=== PATIENT | female | born 1955 | race African-American/Black ===

== ENCOUNTER 2022-07-18 18:15 | Inpatient (IN) | payer MEDICARE, OTHER ==
[~2022-07-18] VITALS: Ht 160 cm; Wt 93.6 kg
[2022-07-18] MEDS ORDERED: LIDOCAINE HCL 2% JELLY 5 ML TUBE TOP ONE (19:15)
[2022-07-18] MEDS ORDERED: LIDOCAINE JELLY 2% 10ML URO-JET TOP ONE (19:30)
[2022-07-18 20:10] LABS: BASOPHILS # (AUTO) 0.1 (0.0-0.1); BASOPHILS % 0.8 % (0.0-1.0); EOSINOPHILS % 0.5 % (0.0-6.0); HEMATOCRIT 28.7 % (34.2-44.1); HEMOGLOBIN 8.9 g/dL (12.0-16.0); LYMPHOCYTES # (AUTO) 1.7 (1.0-3.2); LYMPHOCYTES % 19.4 % (18.0-39.1); MEAN CORPUSCULAR VOLUME 80.6 fL (81-99); MONOCYTES # (AUTO) 0.9 (0.2-0.8); MONOCYTES % 10.9 % (4.4-11.3); NEUTROPHILS # (AUTO) 5.3 (2.1-6.9); NEUTROPHILS % 61.6 % (38.7-80.0); PLATELET COUNT 244 x10e3/uL (140-360); RED BLOOD COUNT 3.56 x10e6/uL (3.6-5.1); RED CELL DISTRIBUTION WIDTH 20.7 % (11.7-14.4)
[2022-07-18 20:19] LABS: INR 1.31; PARTIAL THROMBOPLASTIN TIME 28.8 seconds (23.8-35.5); PROTHROMBIN TIME 16.5 seconds (11.9-14.5)
[2022-07-18 20:29] LABS: ALBUMIN 2.8 g/dL (3.5-5.0); ALBUMIN/GLOBULIN RATIO 0.9 (0.8-2.0); ANION GAP 18.6 mmol/L (8-16); CALCIUM 9.1 mg/dL (8.4-10.2); CREATININE, SERUM 1.55 mg/dL (0.57-1.11); POTASSIUM 3.6 mmol/L (3.5-5.1)
[2022-07-18] MEDS ORDERED: ACETAMINOPHEN 325 MG TAB PO ONE (20:30)
[2022-07-18 20:36] LABS: CREATINE KINASE MB 0.6 ng/mL (0-5.0)
[2022-07-18 20:37] LABS: CLARITY,URINE SL CLOUDY (CLEAR); COLOR,URINE YELLOW (YELLOW); KETONES,URINE NEGATIVE (NEGATIVE); LEUKOCYTE ESTERASE ,URINE MODERATE (NEGATIVE); NITRITE,URINE NEGATIVE (NEGATIVE); PROTEIN,URINE DIPSTICK 1+ (NEGATIVE); URINE UROBILINOGEN 0.2 mg/dL (0.2 - 1)
[2022-07-18 20:48] LABS: BACTERIA,URINE MODERATE /HPF; EPITHELIAL CELLS,URINE MANY /LPF
[2022-07-18 21:04] LABS: HYPOCHROMASIA SLIGHT; LYMPHOCYTES % (MANUAL) 19 % (19-48); MICROCYTOSIS SLIGHT; MONOCYTES % (MANUAL) 13 % (3.4-9.0); NEUTROPHILS % (MANUAL) 68 % (40-74); NUCLEATED RED BLOOD CELLS 1; PLATELET ESTIMATE ADEQUATE; PLATELET MORPHOLOGY COMMENT NORMAL; RBC MORPHOLOGY COMMENT ABNORMAL
[2022-07-18] MEDS: FUROSEMIDE INJ 10 MG/ML 4 ML VIAL IV SCH (21:45)
[2022-07-18] MEDS ORDERED: ONDANSETRON HCL INJ 2MG/ML 2ML 2 MG/ML VIAL IV PRN (21:45)
[2022-07-18] MEDS ORDERED: SODIUM CHLORIDE FLUSH 10 ML SYR INJ PRN (21:45)
[2022-07-19] MEDS ORDERED: TEMAZEPAM 7.5 MG CAP PO PRN (00:30)
[2022-07-19] MEDS ORDERED: POLYETHYLENE GLYCOL 3350 17 GM PACK PO PRN (00:30)
[2022-07-19 02:27] VITALS: BP 140/92
[2022-07-19 06:52] LABS: BASOPHILS # (AUTO) 0.1 (0.0-0.1); EOSINOPHILS # (AUTO) 0.1 (0.0-0.4); EOSINOPHILS % 1.8 % (0.0-6.0); HEMATOCRIT 27.2 % (34.2-44.1); HEMOGLOBIN 8.9 g/dL (12.0-16.0); LYMPHOCYTES # (AUTO) 1.8 (1.0-3.2); MEAN CORPUSCULAR HEMOGLOBIN 27.3 pg (28-32); MEAN CORPUSCULAR HGB CONC 32.7 g/dL (31-35); MEAN CORPUSCULAR VOLUME 83.4 fL (81-99); MONOCYTES % 12.6 % (4.4-11.3); NEUTROPHILS # (AUTO) 4.3 (2.1-6.9); NEUTROPHILS % 54.2 % (38.7-80.0); PLATELET COUNT 248 x10e3/uL (140-360); RED BLOOD COUNT 3.26 x10e6/uL (3.6-5.1); RED CELL DISTRIBUTION WIDTH 22.2 % (11.7-14.4)
[2022-07-19 07:11] LABS: ANION GAP 18.5 mmol/L (8-16); CALCIUM 9.2 mg/dL (8.4-10.2); CREATININE, SERUM 1.57 mg/dL (0.57-1.11); POTASSIUM 3.5 mmol/L (3.5-5.1)
[2022-07-19] MEDS ORDERED: FAMOTIDINE 20 MG TAB PO SCH (07:30)
[2022-07-19 07:31] LABS: CHOL/HDL RATIO 3.1 (3.0-3.6); MAGNESIUM 1.3 MG/DL (1.3-2.1); PHOSPHORUS 3.5 MG/DL (2.3-4.7)
[2022-07-19 07:43] LABS: THYROID STIMULATING HORMONE 2.711 uIU/mL (0.350-4.940)
[2022-07-19] MEDS: METOPROLOL SUCCINATE 25 MG TAB XL PO SCH (09:46)
[2022-07-19] MEDS: SPIRONOLACTONE 25 MG TAB PO SCH (09:47)
[2022-07-19] MEDS: FUROSEMIDE INJ 10 MG/ML 4 ML VIAL IV SCH ×2 (09:47→21:00)
[2022-07-19] MEDS: DOCUSATE SODIUM 100 MG CAP PO SCH ×2 (09:47→16:20)
[2022-07-19 10:03] VITALS: BP 151/86
[2022-07-19] MEDS ORDERED: FLOVENT DISKUS50 MCG IH (10:29)
[2022-07-19] MEDS ORDERED: FUROSEMIDE40 MG PO (10:33)
[2022-07-19] MEDS ORDERED: ATORVASTATIN CA20 MG PO (10:33)
[2022-07-19] MEDS ORDERED: LORATADINE10 MG PO (10:33)
[2022-07-19] MEDS ORDERED: METOPROLOL SUCC50 MG PO (10:33)
[2022-07-19 10:46] VITALS: BP 151/86
[2022-07-19 12:14] VITALS: BP 151/86
[2022-07-19] MEDS ORDERED: SODIUM CHLORIDE 0.9% 250ML 250 ML ONE (16:08)
[2022-07-19] MEDS: METHYLPREDNISOLONE SOD SUCC 125 MG/2ML VIAL IV SCH (16:20)
[2022-07-19] MEDS: Doxycycline IV 100 MG in SODIUM CHLORIDE 0.9% 100 ML IV SCH (16:20)
[2022-07-19 16:57] VITALS: BP 101/71
[2022-07-19] MEDS: LEVALBUTEROL HCL SOLN NEBU 1.25 MG/3 ML NEB INH SCH (19:35)
[2022-07-19] MEDS: IPRATROPIUM BROMIDE 0.02% 2.5 ML NEB NEB SCH (19:35)
[2022-07-19 20:00] VITALS: BP 150/98
[2022-07-19] MEDS: ATORVASTATIN 40 MG TAB PO SCH (21:36)
[2022-07-19] MEDS: TEMAZEPAM 15 MG CAP PO PRN (21:36)
[2022-07-20] MEDS: IPRATROPIUM BROMIDE 0.02% 2.5 ML NEB NEB SCH ×4 (00:25→19:30)
[2022-07-20] MEDS: LEVALBUTEROL HCL SOLN NEBU 1.25 MG/3 ML NEB INH SCH ×4 (00:25→19:30)
[2022-07-20] MEDS: Doxycycline IV 100 MG in SODIUM CHLORIDE 0.9% 100 ML IV SCH ×2 (04:43→15:24)
[2022-07-20] MEDS: METHYLPREDNISOLONE SOD SUCC 125 MG/2ML VIAL IV SCH (04:44)
[2022-07-20] MEDS: FUROSEMIDE INJ 10 MG/ML 4 ML VIAL IV SCH ×3 (05:46→16:47)
[2022-07-20 06:59] LABS: BASOPHILS % 0.4 % (0.0-1.0); HEMATOCRIT 29.1 % (34.2-44.1); HEMOGLOBIN 9.4 g/dL (12.0-16.0); LYMPHOCYTES # (AUTO) 0.9 (1.0-3.2); LYMPHOCYTES % 12.4 % (18.0-39.1); MEAN CORPUSCULAR HEMOGLOBIN 25.4 pg (28-32); MEAN CORPUSCULAR HGB CONC 32.3 g/dL (31-35); MEAN CORPUSCULAR VOLUME 78.6 fL (81-99); MONOCYTES # (AUTO) 0.2 (0.2-0.8); NEUTROPHILS # (AUTO) 5.8 (2.1-6.9); NEUTROPHILS % 77.3 % (38.7-80.0); PLATELET COUNT 338 x10e3/uL (140-360); RED CELL DISTRIBUTION WIDTH 20.1 % (11.7-14.4)
[2022-07-20 07:19] LABS: ALBUMIN 2.7 g/dL (3.5-5.0); ALBUMIN/GLOBULIN RATIO 0.9 (0.8-2.0); ANION GAP 16.8 mmol/L (8-16); CALCIUM 9.2 mg/dL (8.4-10.2); CREATININE, SERUM 1.57 mg/dL (0.57-1.11); POTASSIUM 3.8 mmol/L (3.5-5.1)
[2022-07-20] MEDS: FAMOTIDINE 20 MG TAB PO SCH (08:34)
[2022-07-20] MEDS: SPIRONOLACTONE 25 MG TAB PO SCH (08:34)
[2022-07-20] MEDS: DOCUSATE SODIUM 100 MG CAP PO SCH ×2 (08:34→16:44)
[2022-07-20] MEDS: METOPROLOL SUCCINATE 25 MG TAB XL PO SCH (08:36)
[2022-07-20 08:41] VITALS: BP 158/95
[2022-07-20 08:49] VITALS: BP 158/95
[2022-07-20] MEDS ORDERED: METOPROLOL SUCCINATE 25 MG TAB XL PO SCH (09:00)
[2022-07-20 10:32] LABS: CREATININE,URINE RANDOM 17.33 mg/dL (47-110)
[2022-07-20 10:40] LABS: TOTAL PROTEIN, URINE < 6.8 mg/dL (1-14)
[2022-07-20 12:06] VITALS: BP 139/98
[2022-07-20] MEDS: METHYLPREDNISOLONE SOD SUCC 40 MG/ML VIAL 1ML IV SCH ×2 (13:04→21:30)
[2022-07-20] MEDS ORDERED: ONDANSETRON HCL 4 MG ORAL DISINTEGRATING TAB PO PRN (13:45)
[2022-07-20 16:01] VITALS: BP 129/93
[2022-07-20] MEDS ORDERED: BUDESONIDE 0.25 MG/2 ML NEB NEB SCH ×2 (19:00→21:30)
[2022-07-20 20:00] VITALS: BP 141/91
[2022-07-20] MEDS: HEPARIN SOD (PORCINE) 5,000 UNIT/ML VIAL SC SCH (21:35)
[2022-07-20] MEDS: ATORVASTATIN 40 MG TAB PO SCH (21:36)
[2022-07-21] VITALS (7 sets, daily range): BP systolic 131–158; BP diastolic 84–117
[2022-07-21] MEDS: LEVALBUTEROL HCL SOLN NEBU 1.25 MG/3 ML NEB INH SCH ×4 (01:00→19:05)
[2022-07-21] MEDS: IPRATROPIUM BROMIDE 0.02% 2.5 ML NEB NEB SCH ×4 (01:00→19:05)
[2022-07-21] MEDS: BUDESONIDE 0.25 MG/2 ML NEB INH SCH ×3 (01:00→19:05)
[2022-07-21] MEDS: METHYLPREDNISOLONE SOD SUCC 40 MG/ML VIAL 1ML IV SCH ×3 (05:03→22:46)
[2022-07-21] MEDS: Doxycycline IV 100 MG in SODIUM CHLORIDE 0.9% 100 ML IV SCH ×2 (05:04→14:42)
[2022-07-21] MEDS: FUROSEMIDE INJ 10 MG/ML 4 ML VIAL IV SCH ×3 (05:10→17:00)
[2022-07-21 06:13] LABS: ALBUMIN 2.7 g/dL (3.5-5.0); ANION GAP 17.5 mmol/L (8-16); CALCIUM 9.1 mg/dL (8.4-10.2); CREATININE, SERUM 1.82 mg/dL (0.57-1.11); POTASSIUM 3.5 mmol/L (3.5-5.1)
[2022-07-21] MEDS: SPIRONOLACTONE 25 MG TAB PO SCH (09:15)
[2022-07-21] MEDS: FAMOTIDINE 20 MG TAB PO SCH (09:15)
[2022-07-21] MEDS: DOCUSATE SODIUM 100 MG CAP PO SCH ×2 (09:15→17:00)
[2022-07-21] MEDS: METOPROLOL SUCCINATE 25 MG TAB XL PO SCH (09:16)
[2022-07-21] MEDS: HEPARIN SOD (PORCINE) 5,000 UNIT/ML VIAL SC SCH ×2 (09:19→22:55)
[2022-07-21] MEDS: TEMAZEPAM 15 MG CAP PO PRN (22:45)
[2022-07-21] MEDS: ATORVASTATIN 40 MG TAB PO SCH (22:46)
[2022-07-21] MEDS: METOPROLOL TARTRATE INJ 1 MG/ML VIAL IV PRN (22:47)
[2022-07-22] VITALS (12 sets, daily range): BP systolic 116–168; BP diastolic 84–113
[2022-07-22] MEDS: IPRATROPIUM BROMIDE 0.02% 2.5 ML NEB NEB SCH ×4 (00:40→19:55)
[2022-07-22] MEDS: LEVALBUTEROL HCL SOLN NEBU 1.25 MG/3 ML NEB INH SCH ×4 (00:40→19:55)
[2022-07-22] MEDS: Doxycycline IV 100 MG in SODIUM CHLORIDE 0.9% 100 ML IV SCH ×2 (03:38→14:25)
[2022-07-22] MEDS: METHYLPREDNISOLONE SOD SUCC 40 MG/ML VIAL 1ML IV SCH ×3 (07:05→21:03)
[2022-07-22] MEDS: FUROSEMIDE INJ 10 MG/ML 4 ML VIAL IV SCH ×2 (07:06→16:48)
[2022-07-22] MEDS: BUDESONIDE 0.25 MG/2 ML NEB INH SCH ×2 (07:24→19:00)
[2022-07-22 07:51] LABS: ANION GAP 17.4 mmol/L (8-16); CREATININE, SERUM 1.95 mg/dL (0.57-1.11); POTASSIUM 3.4 mmol/L (3.5-5.1)
[2022-07-22] MEDS: SPIRONOLACTONE 25 MG TAB PO SCH (09:26)
[2022-07-22] MEDS: DOCUSATE SODIUM 100 MG CAP PO SCH ×2 (09:26→16:48)
[2022-07-22] MEDS: METOPROLOL SUCCINATE 25 MG TAB XL PO SCH (09:26)
[2022-07-22] MEDS: FAMOTIDINE 20 MG TAB PO SCH (09:26)
[2022-07-22] MEDS: HEPARIN SOD (PORCINE) 5,000 UNIT/ML VIAL SC SCH ×2 (09:32→21:02)
[2022-07-22] MEDS: ATORVASTATIN 40 MG TAB PO SCH (21:03)
[2022-07-23] VITALS (8 sets, daily range): BP systolic 134–176; BP diastolic 87–124
[2022-07-23] MEDS: IPRATROPIUM BROMIDE 0.02% 2.5 ML NEB NEB SCH ×4 (01:45→18:55)
[2022-07-23] MEDS: LEVALBUTEROL HCL SOLN NEBU 1.25 MG/3 ML NEB INH SCH ×4 (01:45→18:55)
[2022-07-23] MEDS: Doxycycline IV 100 MG in SODIUM CHLORIDE 0.9% 100 ML IV SCH ×2 (02:52→16:00)
[2022-07-23 05:24] LABS: BASOPHILS # (AUTO) 0.1 (0.0-0.1); BASOPHILS % 0.3 % (0.0-1.0); EOSINOPHILS # (AUTO) 0.1 (0.0-0.4); EOSINOPHILS % 0.7 % (0.0-6.0); HEMATOCRIT 27.9 % (34.2-44.1); HEMOGLOBIN 8.8 g/dL (12.0-16.0); LYMPHOCYTES # (AUTO) 0.4 (1.0-3.2); LYMPHOCYTES % 2.9 % (18.0-39.1); MEAN CORPUSCULAR HEMOGLOBIN 25.3 pg (28-32); MEAN CORPUSCULAR HGB CONC 31.5 g/dL (31-35); MEAN CORPUSCULAR VOLUME 80.2 fL (81-99); MONOCYTES # (AUTO) 0.7 (0.2-0.8); MONOCYTES % 4.3 % (4.4-11.3); NEUTROPHILS # (AUTO) 11.7 (2.1-6.9); NEUTROPHILS % 78.1 % (38.7-80.0); PLATELET COUNT 299 x10e3/uL (140-360); RED BLOOD COUNT 3.48 x10e6/uL (3.6-5.1); RED CELL DISTRIBUTION WIDTH 20.3 % (11.7-14.4)
[2022-07-23 05:46] LABS: ANION GAP 17.2 mmol/L (8-16); CALCIUM 9.2 mg/dL (8.4-10.2); CREATININE, SERUM 1.95 mg/dL (0.57-1.11); MAGNESIUM 1.3 MG/DL (1.3-2.1); POTASSIUM 3.2 mmol/L (3.5-5.1)
[2022-07-23] MEDS: METHYLPREDNISOLONE SOD SUCC 40 MG/ML VIAL 1ML IV SCH (06:15)
[2022-07-23] MEDS: BUDESONIDE 0.25 MG/2 ML NEB INH SCH ×2 (06:45→19:00)
[2022-07-23 08:06] LABS: LYMPHOCYTES % (MANUAL) 4 % (19-48); MONOCYTES % (MANUAL) 6 % (3.4-9.0); NEUTROPHILS % (MANUAL) 90 % (40-74); PLATELET ESTIMATE ADEQUATE; PLATELET MORPHOLOGY COMMENT NORMAL; RBC MORPHOLOGY COMMENT NORMAL
[2022-07-23] MEDS ORDERED: FUROSEMIDE 40 MG TAB PO SCH (09:00)
[2022-07-23] MEDS: FAMOTIDINE 20 MG TAB PO SCH (09:51)
[2022-07-23] MEDS: SPIRONOLACTONE 25 MG TAB PO SCH (09:51)
[2022-07-23] MEDS: DOCUSATE SODIUM 100 MG CAP PO SCH ×2 (09:51→16:41)
[2022-07-23] MEDS: METOPROLOL SUCCINATE 50 MG TAB XL PO SCH (09:52)
[2022-07-23] MEDS: HEPARIN SOD (PORCINE) 5,000 UNIT/ML VIAL SC SCH ×2 (09:54→21:34)
[2022-07-23] MEDS ORDERED: HYDRALAZINE HCL 25 MG TAB PO SCH (12:00)
[2022-07-23] MEDS: POTASSIUM CHLORIDE 20MEQ/100ML 100 ML IV SCH ×2 (12:14→13:00)
[2022-07-23] MEDS ORDERED: SODIUM CHLORIDE 0.9% 500ML 500 ML ONE (12:26)
[2022-07-23] MEDS: ACETAMINOPHEN 325 MG TAB PO PRN (16:41)
[2022-07-23] MEDS: METOPROLOL TARTRATE INJ 1 MG/ML VIAL IV PRN (16:44)
[2022-07-23] MEDS ORDERED: BUMETANIDE 1 MG TAB PO SCH ×2 (17:00)
[2022-07-23] MEDS ORDERED: METHYLPREDNISOLONE SOD SUCC 40 MG/ML VIAL 1ML IV SCH (17:00)
[2022-07-23] MEDS ORDERED: POTASSIUM CHLORIDE 20MEQ/100ML 100 ML IV ONE (17:00)
[2022-07-23] MEDS: HYDRALAZINE HCL 25 MG TAB PO SCH ×2 (18:21→21:00)
[2022-07-23] MEDS: ATORVASTATIN 40 MG TAB PO SCH (21:29)
[2022-07-24] VITALS (8 sets, daily range): BP systolic 136–154; BP diastolic 83–102
[2022-07-24] MEDS: IPRATROPIUM BROMIDE 0.02% 2.5 ML NEB NEB SCH ×4 (01:05→19:30)
[2022-07-24] MEDS: LEVALBUTEROL HCL SOLN NEBU 1.25 MG/3 ML NEB INH SCH ×4 (01:05→19:30)
[2022-07-24] MEDS: Doxycycline IV 100 MG in SODIUM CHLORIDE 0.9% 100 ML IV SCH ×2 (03:27→15:03)
[2022-07-24] MEDS: HYDRALAZINE HCL 25 MG TAB PO SCH ×3 (05:24→21:58)
[2022-07-24] MEDS ORDERED: BUDESONIDE 0.5MG/2 ML NEB ONE (06:49)
[2022-07-24] MEDS: BUDESONIDE 0.25 MG/2 ML NEB INH SCH ×2 (07:00→19:45)
[2022-07-24] MEDS ORDERED: FUROSEMIDE 40 MG TAB PO SCH (09:00)
[2022-07-24] MEDS: METHYLPREDNISOLONE SOD SUCC 40 MG/ML VIAL 1ML IV SCH (09:20)
[2022-07-24] MEDS: FAMOTIDINE 20 MG TAB PO SCH (09:20)
[2022-07-24] MEDS: METOPROLOL SUCCINATE 50 MG TAB XL PO SCH (09:20)
[2022-07-24] MEDS: DOCUSATE SODIUM 100 MG CAP PO SCH ×2 (09:20→16:09)
[2022-07-24] MEDS: HEPARIN SOD (PORCINE) 5,000 UNIT/ML VIAL SC SCH ×2 (09:34→22:02)
[2022-07-24] MEDS ORDERED: BUMETANIDE INJ 0.25MG/ML 4ML VIAL IV STA (10:31)
[2022-07-24 10:32] LABS: ANION GAP 21.6 mmol/L (8-16); CALCIUM 9.8 mg/dL (8.4-10.2); CREATININE, SERUM 2.07 mg/dL (0.57-1.11); MAGNESIUM 1.3 MG/DL (1.3-2.1); PHOSPHORUS 3.3 MG/DL (2.3-4.7); POTASSIUM 4.6 mmol/L (3.5-5.1)
[2022-07-24 10:51] LABS: HEMATOCRIT 30.9 % (34.2-44.1); MEAN CORPUSCULAR HEMOGLOBIN 26.7 pg (28-32); MEAN CORPUSCULAR HGB CONC 32.4 g/dL (31-35); MEAN CORPUSCULAR VOLUME 82.4 fL (81-99); PLATELET COUNT 332 x10e3/uL (140-360); RED BLOOD COUNT 3.75 x10e6/uL (3.6-5.1); RED CELL DISTRIBUTION WIDTH 21.3 % (11.7-14.4)
[2022-07-24] MEDS ORDERED: Vancomycin IV 1 GM in SODIUM CHLORIDE 0.9% 250ML 250 ML IV ONE (11:00)
[2022-07-24] MEDS: BUMETANIDE INJ 0.25MG/ML 4ML VIAL IV SCH ×2 (15:44→21:58)
[2022-07-24] MEDS: ATORVASTATIN 40 MG TAB PO SCH (21:57)
[2022-07-25] VITALS (9 sets, daily range): BP systolic 114–168; BP diastolic 68–100
[2022-07-25] MEDS: LEVALBUTEROL HCL SOLN NEBU 1.25 MG/3 ML NEB INH SCH ×4 (00:20→19:50)
[2022-07-25] MEDS: IPRATROPIUM BROMIDE 0.02% 2.5 ML NEB NEB SCH ×4 (00:20→19:50)
[2022-07-25] MEDS: Doxycycline IV 100 MG in SODIUM CHLORIDE 0.9% 100 ML IV SCH ×2 (02:49→14:17)
[2022-07-25] MEDS: BUMETANIDE INJ 0.25MG/ML 4ML VIAL IV SCH (05:56)
[2022-07-25] MEDS: HYDRALAZINE HCL 25 MG TAB PO SCH ×3 (05:56→22:13)
[2022-07-25] MEDS: BUDESONIDE 0.25 MG/2 ML NEB INH SCH ×2 (06:00→19:50)
[2022-07-25 06:30] LABS: BASOPHILS % 0.3 % (0.0-1.0); EOSINOPHILS # (AUTO) 0.3 (0.0-0.4); EOSINOPHILS % 2.2 % (0.0-6.0); HEMATOCRIT 31.7 % (34.2-44.1); LYMPHOCYTES # (AUTO) 0.7 (1.0-3.2); LYMPHOCYTES % 4.9 % (18.0-39.1); MEAN CORPUSCULAR HEMOGLOBIN 24.8 pg (28-32); MEAN CORPUSCULAR HGB CONC 31.5 g/dL (31-35); MEAN CORPUSCULAR VOLUME 78.7 fL (81-99); MONOCYTES # (AUTO) 0.6 (0.2-0.8); MONOCYTES % 4.6 % (4.4-11.3); NEUTROPHILS # (AUTO) 10.5 (2.1-6.9); NEUTROPHILS % 78.8 % (38.7-80.0); PLATELET COUNT 307 x10e3/uL (140-360); RED BLOOD COUNT 4.03 x10e6/uL (3.6-5.1); RED CELL DISTRIBUTION WIDTH 20.1 % (11.7-14.4)
[2022-07-25 07:13] LABS: ALBUMIN 2.8 g/dL (3.5-5.0); ALBUMIN/GLOBULIN RATIO 0.7 (0.8-2.0); ANION GAP 21.7 mmol/L (8-16); CALCIUM 9.9 mg/dL (8.4-10.2); CREATININE, SERUM 2.35 mg/dL (0.57-1.11); POTASSIUM 4.7 mmol/L (3.5-5.1)
[2022-07-25] MEDS: FAMOTIDINE 20 MG TAB PO SCH (07:30)
[2022-07-25] MEDS: DOCUSATE SODIUM 100 MG CAP PO SCH ×2 (09:00→17:08)
[2022-07-25] MEDS: HEPARIN SOD (PORCINE) 5,000 UNIT/ML VIAL SC SCH ×2 (09:00→22:21)
[2022-07-25] MEDS: METOPROLOL SUCCINATE 50 MG TAB XL PO SCH (09:43)
[2022-07-25] MEDS ORDERED: BUMETANIDE 1 MG TAB PO STA (12:33)
[2022-07-25] MEDS ORDERED: BUMETANIDE INJ 0.25MG/ML 4ML VIAL IV STA (12:46)
[2022-07-25] MEDS: BUMETANIDE 10 MG in SODIUM CHLORIDE 0.9% 60 ML IV SCH ×2 (13:08→22:23)
[2022-07-25] MEDS: METOLAZONE 5 MG TAB PO SCH (13:11)
[2022-07-25] MEDS: ACETAMINOPHEN 325 MG TAB PO PRN (16:49)
[2022-07-25 17:29] LABS: CREATININE,URINE RANDOM 14.14 mg/dL (47-110); TOTAL PROTEIN, URINE 10.9 mg/dL (1-14)
[2022-07-25] MEDS: ATORVASTATIN 40 MG TAB PO SCH (22:13)
[2022-07-26] VITALS (8 sets, daily range): BP systolic 119–141; BP diastolic 75–89
[2022-07-26] MEDS: IPRATROPIUM BROMIDE 0.02% 2.5 ML NEB NEB SCH ×4 (01:40→19:45)
[2022-07-26] MEDS: LEVALBUTEROL HCL SOLN NEBU 1.25 MG/3 ML NEB INH SCH ×3 (01:40→19:45)
[2022-07-26] MEDS: Doxycycline IV 100 MG in SODIUM CHLORIDE 0.9% 100 ML IV SCH ×2 (03:50→15:33)
[2022-07-26] MEDS: HYDRALAZINE HCL 25 MG TAB PO SCH ×3 (06:14→21:30)
[2022-07-26] MEDS: BUDESONIDE 0.25 MG/2 ML NEB INH SCH ×2 (07:19→19:45)
[2022-07-26 08:03] LABS: ALBUMIN 2.8 g/dL (3.5-5.0); ALBUMIN/GLOBULIN RATIO 0.8 (0.8-2.0); ANION GAP 21.2 mmol/L (8-16); CALCIUM 10.1 mg/dL (8.4-10.2); CREATININE, SERUM 2.37 mg/dL (0.57-1.11); POTASSIUM 3.2 mmol/L (3.5-5.1)
[2022-07-26] MEDS: DOCUSATE SODIUM 100 MG CAP PO SCH ×2 (09:19→16:43)
[2022-07-26] MEDS: METHYLPREDNISOLONE SOD SUCC 40 MG/ML VIAL 1ML IV SCH (09:19)
[2022-07-26] MEDS: BUMETANIDE 10 MG in SODIUM CHLORIDE 0.9% 60 ML IV SCH ×2 (09:19→19:00)
[2022-07-26] MEDS: FAMOTIDINE 20 MG TAB PO SCH (09:20)
[2022-07-26] MEDS: METOLAZONE 5 MG TAB PO SCH (09:20)
[2022-07-26] MEDS: METOPROLOL SUCCINATE 50 MG TAB XL PO SCH (09:20)
[2022-07-26] MEDS: HEPARIN SOD (PORCINE) 5,000 UNIT/ML VIAL SC SCH ×2 (11:32→21:32)
[2022-07-26] MEDS ORDERED: SODIUM CHLORIDE 0.9% 250ML 250 ML ONE ×2 (12:10→18:49)
[2022-07-26] MEDS ORDERED: POTASSIUM CHLORIDE 20MEQ/100ML 200 ML IV ONE (12:30)
[2022-07-26] MEDS: POTASSIUM CHLORIDE 20MEQ/100ML 100 ML IV SCH ×2 (13:41→16:28)
[2022-07-26] MEDS: ATORVASTATIN 40 MG TAB PO SCH (21:30)
[2022-07-27] VITALS (7 sets, daily range): BP systolic 103–123; BP diastolic 66–90
[2022-07-27] MEDS: LEVALBUTEROL HCL SOLN NEBU 1.25 MG/3 ML NEB INH SCH ×4 (02:05→19:25)
[2022-07-27] MEDS: IPRATROPIUM BROMIDE 0.02% 2.5 ML NEB NEB SCH ×4 (02:05→19:25)
[2022-07-27] MEDS: Doxycycline IV 100 MG in SODIUM CHLORIDE 0.9% 100 ML IV SCH ×2 (02:29→17:48)
[2022-07-27] MEDS: BUMETANIDE 10 MG in SODIUM CHLORIDE 0.9% 60 ML IV SCH ×3 (04:32→21:12)
[2022-07-27] MEDS: HYDRALAZINE HCL 25 MG TAB PO SCH ×3 (06:02→21:08)
[2022-07-27] MEDS: BUDESONIDE 0.25 MG/2 ML NEB INH SCH ×2 (07:27→19:25)
[2022-07-27] MEDS: METOPROLOL SUCCINATE 50 MG TAB XL PO SCH (09:00)
[2022-07-27 10:07] LABS: ALBUMIN 2.7 g/dL (3.5-5.0); ALBUMIN/GLOBULIN RATIO 0.8 (0.8-2.0); ANION GAP 19.8 mmol/L (8-16); CALCIUM 10.2 mg/dL (8.4-10.2); CREATININE, SERUM 2.47 mg/dL (0.57-1.11); POTASSIUM 3.8 mmol/L (3.5-5.1)
[2022-07-27] MEDS: METOLAZONE 5 MG TAB PO SCH (11:09)
[2022-07-27] MEDS: DOCUSATE SODIUM 100 MG CAP PO SCH ×2 (11:09→17:00)
[2022-07-27] MEDS: FAMOTIDINE 20 MG TAB PO SCH (11:09)
[2022-07-27] MEDS: HEPARIN SOD (PORCINE) 5,000 UNIT/ML VIAL SC SCH (11:16)
[2022-07-27] MEDS: ATORVASTATIN 40 MG TAB PO SCH (21:07)
[2022-07-27] MEDS ORDERED: DIPHENHYDRAMINE HCL 25 MG CAP PO ONE (23:45)
[2022-07-28] VITALS (13 sets, daily range): BP systolic 95–137; BP diastolic 72–115
[2022-07-28] MEDS: ACETAMINOPHEN 325 MG TAB PO PRN ×2 (00:07→21:39)
[2022-07-28] MEDS: LEVALBUTEROL HCL SOLN NEBU 1.25 MG/3 ML NEB INH SCH ×4 (01:40→19:18)
[2022-07-28] MEDS: IPRATROPIUM BROMIDE 0.02% 2.5 ML NEB NEB SCH ×4 (01:40→19:18)
[2022-07-28] MEDS: Doxycycline IV 100 MG in SODIUM CHLORIDE 0.9% 100 ML IV SCH ×2 (02:10→14:19)
[2022-07-28] MEDS: HYDRALAZINE HCL 25 MG TAB PO SCH ×3 (06:20→21:38)
[2022-07-28] MEDS: BUDESONIDE 0.25 MG/2 ML NEB INH SCH ×2 (07:07→19:18)
[2022-07-28 08:47] LABS: BASOPHILS % 0.4 % (0.0-1.0); EOSINOPHILS # (AUTO) 0.1 (0.0-0.4); EOSINOPHILS % 1.8 % (0.0-6.0); HEMOGLOBIN 11.1 g/dL (12.0-16.0); LYMPHOCYTES # (AUTO) 1.4 (1.0-3.2); LYMPHOCYTES % 18.3 % (18.0-39.1); MEAN CORPUSCULAR HEMOGLOBIN 24.4 pg (28-32); MEAN CORPUSCULAR HGB CONC 31.7 g/dL (31-35); MEAN CORPUSCULAR VOLUME 77.1 fL (81-99); MONOCYTES # (AUTO) 0.8 (0.2-0.8); MONOCYTES % 10.4 % (4.4-11.3); NEUTROPHILS # (AUTO) 4.8 (2.1-6.9); NEUTROPHILS % 61.2 % (38.7-80.0); PLATELET COUNT 270 x10e3/uL (140-360); RED BLOOD COUNT 4.54 x10e6/uL (3.6-5.1); RED CELL DISTRIBUTION WIDTH 19.5 % (11.7-14.4)
[2022-07-28 09:08] LABS: CALCIUM 10.1 mg/dL (8.4-10.2); CREATININE, SERUM 2.52 mg/dL (0.57-1.11)
[2022-07-28] MEDS ORDERED: MAGNESIUM SULFATE 2GM/50ML 50 ML IV ONE (09:45)
[2022-07-28] MEDS: METOLAZONE 5 MG TAB PO SCH (09:50)
[2022-07-28] MEDS: DOCUSATE SODIUM 100 MG CAP PO SCH ×2 (09:50→17:29)
[2022-07-28] MEDS: METOPROLOL SUCCINATE 50 MG TAB XL PO SCH (09:51)
[2022-07-28] MEDS: FAMOTIDINE 20 MG TAB PO SCH (09:54)
[2022-07-28 11:03] LABS: EOSINOPHILS % (MANUAL) 2 % (0-7); LYMPHOCYTES % (MANUAL) 18 % (19-48); MONOCYTES % (MANUAL) 8 % (3.4-9.0); NEUTROPHILS % (MANUAL) 69 % (40-74); NUCLEATED RED BLOOD CELLS 1
[2022-07-28 11:05] LABS: ANISOCYTOSIS MODERATE; HYPOCHROMASIA MODERATE; MICROCYTOSIS MODERATE; PLATELET ESTIMATE ADEQUATE; PLATELET MORPHOLOGY COMMENT NORMAL; RBC MORPHOLOGY COMMENT ABNORMAL; SCHISTOCYTES RARE; TARGET CELLS MODERATE; TEAR DROP CELLS FEW
[2022-07-28] MEDS ORDERED: POTASSIUM CHLORIDE 20MEQ/100ML 100 ML IV ONE (12:00)
[2022-07-28] MEDS: BUMETANIDE 10 MG in SODIUM CHLORIDE 0.9% 60 ML IV SCH ×2 (12:46→21:58)
[2022-07-28] MEDS ORDERED: DIPHENHYDRAMINE HCL 25 MG CAP PO PRN (20:45)
[2022-07-28] MEDS: ATORVASTATIN 40 MG TAB PO SCH (21:40)
[2022-07-29] VITALS (16 sets, daily range): BP systolic 76–114; BP diastolic 58–91
[2022-07-29] MEDS: IPRATROPIUM BROMIDE 0.02% 2.5 ML NEB NEB SCH ×4 (00:10→18:59)
[2022-07-29] MEDS: LEVALBUTEROL HCL SOLN NEBU 1.25 MG/3 ML NEB INH SCH ×4 (00:10→18:55)
[2022-07-29] MEDS: Doxycycline IV 100 MG in SODIUM CHLORIDE 0.9% 100 ML IV SCH (03:18)
[2022-07-29 04:50] LABS: ALBUMIN 2.7 g/dL (3.5-5.0); ALBUMIN/GLOBULIN RATIO 0.8 (0.8-2.0); ANION GAP 20.1 mmol/L (8-16); CALCIUM 10.4 mg/dL (8.4-10.2); CREATININE, SERUM 2.81 mg/dL (0.57-1.11); MAGNESIUM 1.5 MG/DL (1.3-2.1); PHOSPHORUS 4.2 MG/DL (2.3-4.7); POTASSIUM 3.1 mmol/L (3.5-5.1)
[2022-07-29] MEDS: HYDRALAZINE HCL 25 MG TAB PO SCH ×3 (06:00→21:14)
[2022-07-29] MEDS: BUDESONIDE 0.25 MG/2 ML NEB INH SCH ×2 (07:11→18:50)
[2022-07-29] MEDS: METOPROLOL SUCCINATE 50 MG TAB XL PO SCH (09:00)
[2022-07-29] MEDS: DOCUSATE SODIUM 100 MG CAP PO SCH ×2 (10:15→17:00)
[2022-07-29] MEDS: FAMOTIDINE 20 MG TAB PO SCH (10:15)
[2022-07-29] MEDS: METOLAZONE 5 MG TAB PO SCH (10:18)
[2022-07-29] MEDS: BUMETANIDE 10 MG in SODIUM CHLORIDE 0.9% 60 ML IV SCH ×3 (10:35→19:02)
[2022-07-29] MEDS ORDERED: POTASSIUM CHLORIDE 20MEQ/100ML 200 ML IV ONE (12:00)
[2022-07-29] MEDS ORDERED: MAGNESIUM SULF 1GRAM/DEXTROSE 100 ML IV ONE (14:00)
[2022-07-29] MEDS: ATORVASTATIN 40 MG TAB PO SCH (21:07)
[2022-07-29] MEDS: ACETAMINOPHEN 325 MG TAB PO PRN (21:07)
== END 2022-07-29 23:53 | disposition short-term general hospital (02) | DRG 291 ==
LOC: ER 19:24 → ERHOLD 21:36 → MED/SURG 07-19 10:03 → ICU 07-27 13:50
PROVIDERS: ADMIT Internal Medicine; ATTEND Internal Medicine
PROC: 8E0ZXY6 Isolation (ICD-10-PCS; principal; 2022-07-28)
DX: I13.0 Hypertensive heart and chronic kidney disease with heart failure and stage 1 through stage 4 chronic kidney disease, or unspecified chronic kidney disease (principal); I50.43 Acute on chronic combined systolic (congestive) and diastolic (congestive) heart failure; U07.1 COVID-19; J15.9 Unspecified bacterial pneumonia; N17.9 Acute kidney failure, unspecified; E78.5 Hyperlipidemia, unspecified; R09.02 Hypoxemia; J84.10 Pulmonary fibrosis, unspecified; J44.9 Chronic obstructive pulmonary disease, unspecified; N18.9 Chronic kidney disease, unspecified; R73.9 Hyperglycemia, unspecified; D63.1 Anemia in chronic kidney disease; J98.4 Other disorders of lung; U09.9 Post COVID-19 condition, unspecified; E87.6 Hypokalemia; E83.42 Hypomagnesemia; D72.829 Elevated white blood cell count, unspecified; I42.0 Dilated cardiomyopathy; Z99.81 Dependence on supplemental oxygen; Z59.6 Low income; Z87.891 Personal history of nicotine dependence
CPT/HCPCS: 36415; 71045; 71046; 71250; 76770; 80048; 80053; 80061; 81001; 82550; 82553; 82570; 83036; 83605; 83735; 83880; 84100; 84145; 84156; 84443; 84484; 85007; 85025; 85027; 85610; 85730; 86039; 86140; 87040; 87070; 87086; 87186; 87205; 87449; 93005; 93970; 94799; 96360; 99252; 99284; J0692; J1644; J1940; J2920; J2930; J3370; J3475; J3480; J7040; J7050